=== PATIENT | male | born 1975 | race Caucasian/White ===

== ENCOUNTER 2017-08-27 15:21 | Emergency (ER) | payer SELFPAY ==
[~2017-08-27] VITALS: Ht 182.9 cm; Wt 112.7 kg
[~2017-08-27 15:21] MED LIST: ADVAIR HFA120 INHALA IH; ASTHMANEFRIN R1 EACH IH; DUONEB 2.5-0.5 M3 ML AEROSOL; GLUCOPHAGE500 MG PO; LEVAQUIN500 MG PO; LEVOFLOXACIN750 MG PO; MEN'S MULTI-VI1 EACH PO; NICOTINE PATCH1 EAC2 TD; PREDNISONE10 MG PO; PREDNISONE20 MG PO; PREDNISONE5 MG PO; PREDNISONE50 MG PO; PROAIR HFA8.5 GM IH; VENTOLIN HFA18 GM IH; ZITHROMAX500 MG PO
[2017-08-27] MEDS ORDERED: PROVENTIL,2.5 MG/3 M IH (16:17)
[2017-08-27] MEDS ORDERED: PREDNISONE20 MG PO (16:17)
[2017-08-27] MEDS ORDERED: LEVAQUIN750 MG PO (17:02)
[2017-08-27 17:45] VITALS: BP 120/73
== END 2017-08-27 17:47 | disposition home or self-care (01) ==
LOC: EME 15:21
DX: J45.901 Unspecified asthma with (acute) exacerbation (principal); J18.9 Pneumonia, unspecified organism; F17.200 Nicotine dependence, unspecified, uncomplicated
CPT/HCPCS: 71046; 94640; 99281; 99284; J7512; J7644